=== PATIENT | male | born 1995 | race Two or more races ===

== ENCOUNTER → 2021-12-25 | Emergency (ER) | payer OTHER ==
[~2021-12-25] VITALS: Ht 175.3 cm; Wt 59.0 kg
== END | disposition left against medical advice (07) ==
LOC: ER 03:37
DX: T14.90XA Injury, unspecified, initial encounter (principal); W05.1XXA Fall from non-moving nonmotorized scooter, initial encounter; Y93.9 Activity, unspecified; Y92.9 Unspecified place or not applicable; Y99.9 Unspecified external cause status

== ENCOUNTER → 2024-04-15 | Emergency (ER) | payer OTHER ==
[~2024-04-15] VITALS: Ht 175.3 cm; Wt 67.1 kg
[2024-04-15 04:53] LABS: HEMOGLOBIN 15.3 g/dL (13-16.00); MEAN CELL VOLUME 88.9 fL (80.0-100.00); MEAN CORPUSCULAR HEMOGLOBIN 30.9 pg (27.00-32.0); MEAN CORPUSCULAR HGB CONC 34.8 g/dl (32.0-36.0); PLATELET COUNT 251 K/uL (150-450); RED BLOOD COUNT 4.95 M/uL (4.00-6.00)
[2024-04-15 05:25] LABS: ALBUMIN 4.7 gm/dL (3.4-5.0); BILIRUBIN TOTAL 0.41 mg/dL (0.3-1.2); CALCIUM 8.9 mg/dL (8.5-10.1); CREATININE SERUM 1.11 mg/dL (0.70-1.30); GFR 77.78; GLOBULINA 3.8 G/DL (2.4-3.5); POTASSIUM 4.52 mEq/L (3.5-5.1); TOTAL PROTEIN 8.5 gm/dL (6.4-8.2)
[2024-04-15 06:04] LABS: PH,URINE 6.5 (5.0-8.0); URINE APPEARANCE Clear; URINE BILIRRUBIN Negative (NEGATIVE); URINE BLOOD Negative; URINE COLOR Yellow; URINE GLUCOSE Negative (NEGATIVE); URINE KETONE Negative (NEGATIVE); URINE LEUKOCYTE Negative; URINE NITRATE Negative; URINE PROTEIN Negative (NEGATIVE); URINE UROBILINOGEN 0.2 E.U./dl
[2024-04-15 06:15] LABS: URINE BACTERIA 3.7 uL (0.0-1933); URINE EPITHELIAL CELLS 0.9 uL (0.0-38.8); URINE RBC 1.2 uL (0.0-20.8); URINE WBC 0.4 uL (0.0-23.2)
[2024-04-15 06:28] LABS: COCAINE NEGATIVE (NEGATIVE); METHADONE NEGATIVE (NEGATIVE); OPIATES NEGATIVE (NEGATIVE); THC ( Cannabinoids) POSITIVE (NEGATIVE)
== END | disposition designated cancer center or children's hospital (05) ==
LOC: ER 03:38
PROVIDERS: General Practice
DX: R45.851 Suicidal ideations (principal); Z91.013 Allergy to seafood; Z20.822 Contact with and (suspected) exposure to COVID-19